=== PATIENT | female | born 1990 | race Two or more races ===

== ENCOUNTER 2024-04-19 22:12 | Emergency (ER) | payer OTHER ==
[2024-04-19 23:28] VITALS: RESP 20
[2024-04-20 00:07] LABS: Amorphous Sediment,Urine Rare /hpf; Bacteria,Urine Rare /hpf; Hyaline Casts,Urine 3 /lpf (0-2); Mucus,Urine Many /hpf; RBC,Urine 1 /hpf (0-5); Squamous Epithelial Cell,Urine 6 /hpf (0-4); WBC,Urine 26 /hpf (0-5)
[2024-04-20 00:27] LABS: Appearance,Urine Slightly Cloudy (Clear); Color,Urine Dark Orange
--- NOTE | 2024-04-20 02:02 | ED ---
Back Pain HPI - General Chief Complaint: Back Pain/Injury Stated Complaint: Abd pain, low back pain Time Seen by Provider: 04/20/24 00:45 Source: patient Limitations: no limitations - Related Data Previous Rx's Medication Instructions Recorded Nitrofurantoin Monohyd/M-Cryst 100 mg PO Q12HR 5 Days #10 cap 04/20/24 [Macrobid] Allergies Allergy/AdvReac Type Severity Reaction Status Date / Time No Known Allergies Allergy Verified 04/19/24 23:23 Review of Systems ROS Statement: Those systems with pertinent positive or pertinent negative responses have been documented in the HPI. ROS Other: All systems not noted in ROS Statement are negative. Past Medical History Past Medical History: No Reported History History of Any Multi-Drug Resistant Organisms: None Reported Past Surgical History: Cholecystectomy Past Psychological History: Anxiety, Depression Smoking Status: Former smoker Past Alcohol Use History: None Reported Past Drug Use History: None Reported General Exam Limitations: no limitations Course Vital Signs 04/19/24 23:24 Temperature 98 F Pulse Rate 80 Respiratory 20 Rate Blood Pressure 149/94 O2 Sat by Pulse 98 Oximetry Medical Decision Making - Lab Data Lab Results 04/19/24 04/19/24 Range/Units 23:30 23:30 Urine Color Dark [place] Urine Appearance Slightly Cloudy H (Clear) Urine RBC 1 (0-5) /hpf Urine WBC 26 H (0-5) /hpf Ur Squamous Epith Cells 6 H (0-4) /hpf Amorphous Sediment Rare H (None) /hpf Urine Bacteria Rare H (None) /hpf Hyaline Casts 3 H (0-2) /lpf Urine Mucus Many H (None) /hpf Urine HCG, Qual Not Detected (Not Detectd) Disposition Clinical Impression: UTI (urinary tract infection) Disposition: HOME SELF-CARE Condition: Good Instructions (If sedation given, give patient instructions): Urinary Tract Infection in Women (ED) Additional Instructions: Follow-up with PCP. Report back to ER with any new or worsening symptoms. Take medication as prescribed. Prescriptions: Nitrofurantoin Monohyd/M-Cryst [Macrobid] 100 mg PO Q12HR 5 Days #10 cap Is patient prescribed a controlled substance at d/c from ED?: No Referrals: None,Stated [Primary Care Provider] - 1-2 days Jose Luis Cotto MD [STAFF PHYSICIAN] - 1-2 days Time of Disposition: 02:
[2024-04-20 02:27] VITALS: BP 122/79; PULSE 84; TEMP 98.1
== END 2024-04-20 02:26 | disposition home or self-care (01) ==
LOC: EC 22:12
DX: N39.0 Urinary tract infection, site not specified (principal); Z87.891 Personal history of nicotine dependence
CPT/HCPCS: 81001; 81025; 87086; 87491; 87591; 99283